=== PATIENT | female | born 1980 | race Caucasian/White ===

== ENCOUNTER 2024-02-17 15:23 | Inpatient (IN) | payer MEDICAID ==
[~2024-02-17] VITALS: Ht 160 cm; Wt 70.5 kg
[2024-02-17 15:23] VITALS: BP_SYST 144; PULSE 75; RESP 18; TEMP 97.6; O2SAT 97
[2024-02-17 16:27] LABS: BILIRUBIN,URINE NEGATIVE (NEGATIVE); BLOOD, URINE 3+ (NEGATIVE); CLARITY/URINE SL CLOUDY (CLEAR); COLOR,URINE YELLOW (YELLOW); GLUCOSE,URINE 2+ (NEGATIVE); KETONES,URINE 3+ (NEGATIVE); LEUKOCYTE ESTERASE ,URINE NEGATIVE (NEGATIVE); NITRITE, URINE NEGATIVE (NEGATIVE); PH,URINE 5.5 (5.0-8.0); PROTEIN URINE 1+ (NEGATIVE); UROBILINOGEN,URINE 0.2 (0.2-1.0)
[2024-02-17 16:37] LABS: RBC,URINE 80-100 /HPF (0-3); WBC,URINE NONE SEEN /HPF (0-3)
[2024-02-17 16:38] LABS: BACTERIA,URINE FEW /HPF (None Seen); MUCUS,URINE None Seen /LPF (None Seen)
[2024-02-17 16:45] LABS: ANION GAP 21 (5-15); CARBON DIOXIDE 12 mmol/L (23-29); CHLORIDE 96 mmol/L (98-107); CREATININE 0.42 mg/dL (0.55-1.30); GFR AFRICAN AMERICAN 212 mL/min (>90); GFR NON AFRICAN-AMERICAN 175 mL/min (>90); LIPASE 933 U/L (16-77); POTASSIUM 4.1 mmol/L (3.5-5.1); TOTAL PROTEIN, SERUM 7.7 g/dL (6.4-8.3); UREA NITROGEN, BLOOD 6 mg/dL (8-21)
[2024-02-17 16:47] LABS: SODIUM SERUM 129 mmol/L (136-145)
[2024-02-17] MEDS: NACL 0.9% 1,000 ML IV ONE ×4 (16:48→23:05)
[2024-02-17 16:50] LABS: BILIRUBIN,DIRECT < 0.1 mg/dL (0.0-0.3); TOTAL BILIRUBIN 1.2 mg/dL (0.0-1.0)
[2024-02-17 16:51] LABS: ALBUMIN 2.9 g/dL (3.4-4.8)
[2024-02-17 16:54] LABS: GLUCOSE 416 mg/dL (74-106)
[2024-02-17 17:03] LABS: HEMATOCRIT 31.8 % (36-48); MEAN CORPUSCULAR HEMOGLOBIN 29 pg (27-31); MEAN CORPUSCULAR HGB CONC 35 % (32-36); MEAN CORPUSCULAR VOLUME 85 fL (79.0-98.0); RED BLOOD CELL COUNT(AUTO) 3.73 MIL/uL (4.2-6.2); RED CELL DISTRIBUTION WIDTH 12.8 % (9.0-15.0)
[2024-02-17 17:05] LABS: PLATELET COUNT (AUTO) 406 K/uL (130-430)
[2024-02-17 17:06] LABS: BAND % (MANUAL) 1 % (0-6); LYMPHOCYTES % (MANUAL) 20 % (20-46)
[2024-02-17 17:07] LABS: BASOPHILS % (MANUAL) 0 % (0-2); EOSINOPHILS % (MANUAL) 2 % (0-7); MONOCYTES % (MANUAL) 5 % (0-11); PLATELET ESTIMATE ADEQUATE (ADEQUATE)
[2024-02-17] MEDS: PANTOPRAZOLE SODIUM 40 MG/VIAL (PROTONIX) IVP ONE (17:09)
[2024-02-17] MEDS: ONDANSETRON HCL 4 MG/2 ML VIAL IVP ONE ×3 (17:10→20:30)
[2024-02-17 17:57] LABS: ALANINE AMINOTRANSFERASE 29 U/L (12-78)
[2024-02-17 17:58] LABS: ASPARTATE AMINOTRANSFERASE 1464 U/L (10-37)
[2024-02-17] MEDS ORDERED: INSULIN REGULAR, HUMAN 10 UNITS/0.1 ML, 3 ML VIAL IVP ONE (18:00)
[2024-02-17 18:09] LABS: ABG O2 SAT% ESTIMATE 95.5 % (94.0-100.0); BLOOD GAS BASE EXCESS -4.5 mmol/L (-3.0-3.0); BLOOD GAS HCO3 19.9 mmol/L (21.0-27.0); BLOOD GAS PCO2 34.4 mmHg (35.0-45.0)
[2024-02-17 18:14] LABS: ALLEN'S TEST POSITIVE (P)
[2024-02-17] MEDS: INSULIN REGULAR, HUMAN 10 UNITS/0.1 ML, 3 ML VIAL IVP ONE (18:35)
[2024-02-17] MEDS: MORPHINE 4 MG INJ. 4 MG/ML VIAL IVP ONE (18:44)
[2024-02-17] MEDS: metFORMIN HCL 500 MG TABLET PO SCH (18:45)
[2024-02-17] MEDS: SODIUM BICARBONATE 8.4% JECT 50 MEQ/50 ML SYRINGE IVP ONE (18:45)
[2024-02-17] MEDS ORDERED: MORPHINE 2 MG/ML INJ. SYRINGE IVP PRN (20:30)
[2024-02-17] MEDS ORDERED: MORPHINE 4 MG INJ. 4 MG/ML VIAL IVP PRN (20:30)
[2024-02-17 21:16] LABS: CREATININE 0.38 mg/dL (0.55-1.30); POTASSIUM 3.4 mmol/L (3.5-5.1)
[2024-02-17 21:17] VITALS: BP_SYST 133; PULSE 78; RESP 17; TEMP 98.2; O2SAT 96
[2024-02-17 21:20] LABS: CALCIUM 6.2 mg/dL (8.4-11.0)
[2024-02-17 21:22] LABS: CALCIUM 7.8 mg/dL (8.4-11.0)
[2024-02-17 21:30] VITALS: BP_SYST 133; PULSE 78; RESP 17; TEMP 98.2; O2SAT 96
[2024-02-17] MEDS: CALCIUM GLUCONATE 1 GM/10 ML VIAL IVP ONE (23:11)
[2024-02-18 04:00] VITALS: BP_SYST 103; PULSE 72; RESP 17; TEMP 98; O2SAT 98
[2024-02-18 08:00] VITALS: O2SAT 98
[2024-02-18 08:10] VITALS: BP_SYST 113; PULSE 76; RESP 18; TEMP 98.4; O2SAT 97
[2024-02-18] MEDS ORDERED: NACL 0.9% 1,000 ML IV SCH (09:30)
[2024-02-18] MEDS ORDERED: LORazepam 2 MG/ML VIAL IVP PRN (09:30)
[2024-02-18] MEDS ORDERED: ONDANSETRON HCL 4 MG/2 ML VIAL IVP PRN (09:30)
[2024-02-18] MEDS: PIOGLITAZONE HCL 15 MG TABLET PO SCH (09:45)
[2024-02-18 10:21] LABS: BASOPHILS % (AUTO) 0.6 % (0.0-2.0); EOSINOPHILS # (AUTO) 0.1 K/uL (0.0-0.4); EOSINOPHILS % (AUTO) 1.9 % (0.0-4.0); HEMATOCRIT 31.6 % (36-48); LYMPHOCYTES # (AUTO) 1.8 K/uL (1.0-5.5); LYMPHOCYTES % (AUTO) 34.2 % (20.5-51.5); MEAN CORPUSCULAR VOLUME 85 fL (79.0-98.0); MONOCYTES # (AUTO) 0.3 K/uL (0.0-1.0); MONOCYTES % (AUTO) 5.8 % (1.7-9.3); NEUTROPHILS % (AUTO) 57.5 % (40.0-70.0); PLATELET COUNT (AUTO) 215 K/uL (130-430); RED BLOOD CELL COUNT(AUTO) 3.72 MIL/uL (4.2-6.2); RED CELL DISTRIBUTION WIDTH 12.4 % (9.0-15.0); WHITE BLOOD COUNT (AUTO) 5.3 K/uL (4.8-10.8)
[2024-02-18 10:38] LABS: HEMOGLOBIN 10.6 g/dL (12.0-16.0); MEAN CORPUSCULAR HGB CONC 35 % (32-36)
[2024-02-18 10:39] LABS: MEAN CORPUSCULAR HEMOGLOBIN 28 pg (27-31)
[2024-02-18] MEDS: INSULIN REGULAR, HUMAN 100 UNITS/ML, 3 ML VIAL (humuLIN R) SUBCUT PRN (10:46)
[2024-02-18 11:01] LABS: ALBUMIN 2.6 g/dL (3.4-4.8); CALCIUM 7.2 mg/dL (8.4-11.0); CREATININE 0.5 mg/dL (0.55-1.30); POTASSIUM 3.3 mmol/L (3.5-5.1); TOTAL BILIRUBIN 0.5 mg/dL (0.0-1.0); TOTAL PROTEIN, SERUM 6.2 g/dL (6.4-8.3)
[2024-02-18] MEDS ORDERED: DEXTROSE 50%-WATER 50 ML DISP.SYRIN IVP PRN (12:15)
[2024-02-18 15:16] VITALS: BP_SYST 125; PULSE 77; RESP 18; TEMP 97.6; O2SAT 98
[2024-02-18 16:05] VITALS: BP_SYST 130; PULSE 74; RESP 19; TEMP 98.2; O2SAT 99
[2024-02-18] MEDS: metFORMIN HCL 500 MG TABLET PO SCH (17:10)
[2024-02-18] MEDS: POTASSIUM CHLORIDE 20 MEQ TABLET.ER PO ONE (18:07)
[2024-02-18 20:00] VITALS: BP_SYST 132; PULSE 72; RESP 18; TEMP 97.3; O2SAT 97; O2SAT 98
[2024-02-19 02:15] VITALS: RESP 20; TEMP 97.4; O2SAT 98
[2024-02-19 05:49] LABS: BASOPHILS % (AUTO) 0.9 % (0.0-2.0); EOSINOPHILS # (AUTO) 0.1 K/uL (0.0-0.4); EOSINOPHILS % (AUTO) 2.9 % (0.0-4.0); HEMATOCRIT 31.6 % (36-48); HEMOGLOBIN 11.3 g/dL (12.0-16.0); LYMPHOCYTES # (AUTO) 2.2 K/uL (1.0-5.5); LYMPHOCYTES % (AUTO) 48.5 % (20.5-51.5); MEAN CORPUSCULAR HEMOGLOBIN 30 pg (27-31); MEAN CORPUSCULAR HGB CONC 36 % (32-36); MEAN CORPUSCULAR VOLUME 85 fL (79.0-98.0); MONOCYTES # (AUTO) 0.3 K/uL (0.0-1.0); MONOCYTES % (AUTO) 6.5 % (1.7-9.3); NEUTROPHILS # (AUTO) 1.9 K/uL (1.8-7.7); NEUTROPHILS % (AUTO) 41.2 % (40.0-70.0); PLATELET COUNT (AUTO) 226 K/uL (130-430); RED BLOOD CELL COUNT(AUTO) 3.72 MIL/uL (4.2-6.2); RED CELL DISTRIBUTION WIDTH 12.9 % (9.0-15.0); WHITE BLOOD COUNT (AUTO) 4.6 K/uL (4.8-10.8)
[2024-02-19 06:01] LABS: CALCIUM 8.4 mg/dL (8.4-11.0); CREATININE 0.45 mg/dL (0.55-1.30); POTASSIUM 3.7 mmol/L (3.5-5.1)
[2024-02-19 08:00] VITALS: BP_SYST 140; PULSE 70; RESP 20; TEMP 97.7; O2SAT 97
[2024-02-19] MEDS ORDERED: PIOG15TA8 PO (10:19)
[2024-02-19] MEDS ORDERED: METF-379 PO (10:19)
[2024-02-19] MEDS ORDERED: OMEG1CAP75 PO (10:19)
[2024-02-19] MEDS ORDERED: LIP20 PO (10:19)
[2024-02-19 12:00] VITALS: BP_SYST 132; PULSE 67; RESP 18; TEMP 98; O2SAT 97
[2024-02-19 13:06] LABS: HEPATITIS B CORE AB, TOTAL Negative (Negative); HEPATITIS B SURFACE AG Negative (Negative); HEPATITIS C VIRUS AB Non Reactive (Non Reactive)
[2024-02-19 15:18] VITALS: BP_SYST 132; PULSE 73; RESP 18; TEMP 97.9; O2SAT 97
[2024-02-19 16:00] VITALS: BP_SYST 136; PULSE 69; RESP 18; TEMP 98; O2SAT 97
== END 2024-02-19 17:20 | disposition home or self-care (01) | DRG 282 ==
LOC: SED 15:23 → STU 20:16 → SMU 02-18 10:08
PROVIDERS: ADMIT Preventive Medicine Preventive Medicine/Occupational Environmental Medicine; ATTEND Preventive Medicine Preventive Medicine/Occupational Environmental Medicine
DX: K85.90 Acute pancreatitis without necrosis or infection, unspecified (principal); E11.10 Type 2 diabetes mellitus with ketoacidosis without coma; E44.0 Moderate protein-calorie malnutrition; E83.51 Hypocalcemia; E87.1 Hypo-osmolality and hyponatremia; D64.9 Anemia, unspecified; E78.00 Pure hypercholesterolemia, unspecified; E80.6 Other disorders of bilirubin metabolism; E86.0 Dehydration; E78.1 Pure hyperglyceridemia; Z79.84 Long term (current) use of oral hypoglycemic drugs; Z83.3 Family history of diabetes mellitus; Z79.899 Other long term (current) drug therapy; Z68.27 Body mass index [BMI] 27.0-27.9, adult
CPT/HCPCS: 36415; 36600; 76705; 80048; 80053; 80061; 80076; 81000; 81001; 81015; 82009; 82150; 82803; 82948; 83037; 83690; 85007; 85025; 85027; 86704; 86706; 86708; 86803; 87340; 93005; 96361; 96374; 96375; 99285; C9113; G0378; J0610; J1815; J2270; J2405